=== PATIENT | male | born 1950 | race Caucasian/White ===

== ENCOUNTER 2023-11-24 16:32 | Inpatient (IN) | payer OTHER, BC ==
[2023-11-24 18:01] LABS: BASO % 0.4 % (0-2.0); EOS % 0.1 % (0-4.5); HEMOGLOBIN 13.2 GM/dL (11.7-16.9); LYMPH % 8.6 % (8-40); MCHC 33.7 g/dl (32.0-35.9); MEAN PLT VOLUME 9.8 fl (7.5-11.1); MONO % 6.6 % (3.8-10.2); NEUT % 84.3 % (42.8-82.8); PLATELET COUNT 138 10^3/uL (134-434); RBC 4.38 M/mm3 (4.00-5.60); RDW 13.3 % (11.9-15.9); WHITE BLOOD COUNT 6.7 K/mm3 (4.0-10.0)
[2023-11-24 18:03] LABS: EPI CELLS 20 /uL (0-25.1); HYALINE CASTS 0 /uL (0-3.1); URINE APPEARANCE CLEAR; URINE BACTERIA 10 /uL (0-1359); URINE BILIRUBIN 2+ (NEGATIVE); URINE COLOR DK YELLOW; URINE GLUCOSE (UA) NEGATIVE (NEGATIVE); URINE KETONE 1+ (NEGATIVE); URINE LEUK ESTERASE TRACE (NEGATIVE); URINE NITRITE NEGATIVE (NEGATIVE); URINE PROTEIN 1+ (NEGATIVE); URINE RBC 24 /uL (0-23.9); URINE WBC 14 /uL (0-25.8)
[2023-11-24 18:10] LABS: INR 1.09 (0.83-1.09); PROTHROMBIN TIME (PATIENT) 12.3 SEC (9.7-13.0)
[2023-11-24] MEDS ORDERED: ACETAMINOPHEN INJECTION 100 ML IVPB ONE (18:25)
[2023-11-24 18:28] LABS: POTASSIUM 3.7 mmol/L (3.5-5.1)
[2023-11-24 18:30] LABS: CALCIUM 9.1 mg/dL (8.5-10.1)
[2023-11-24 18:31] LABS: ALBUMIN 3.7 g/dl (3.4-5.0); BLOOD UREA NITROGEN 38.5 mg/dL (7-18)
[2023-11-24 18:36] LABS: TOT PROT 6.5 g/dl (6.4-8.2)
[2023-11-24] MEDS: LACTATED RINGERS SOLUTION 1000 ML INFUS.BAG IV ONE (18:40)
[2023-11-24] MEDS: ACETAMINOPHEN 1000 MG/100 ML BAG IVPB ONE (18:40)
[2023-11-24] MEDS ORDERED: ACETAMINOPHEN 1000 MG/100 ML BAG IVPB PRN (20:18)
[2023-11-24] MEDS: HEPARIN NA (PORCINE) 5,000 UNITS/ML 1ML VIAL SQ SCH (23:00)
[2023-11-24] MEDS: PANTOPRAZOLE SODIUM 40 MG VIAL IVPUSH SCH (23:00)
[2023-11-24] MEDS: LACTATED RINGERS SOLUTION 1,000 ML/1,000 ML INFUS.BAG IV SCH (23:01)
[2023-11-25 00:49] VITALS: BMI 23.9
[2023-11-25] MEDS: LACTATED RINGERS SOLUTION 1,000 ML/1,000 ML INFUS.BAG IV SCH (05:25)
[2023-11-25 07:06] VITALS: RESP 18
[2023-11-25 08:59] LABS: HEMATOCRIT 38.6 % (35.4-49); MCH 30.1 pg (25.7-33.7); MCHC 33.6 g/dl (32.0-35.9); MEAN CELL VOLUME 89.5 fl (80-96); MEAN PLT VOLUME 11.1 fl (7.5-11.1); PLATELET COUNT 116 10^3/uL (134-434); RBC 4.31 M/mm3 (4.00-5.60); RDW 13.2 % (11.9-15.9); WHITE BLOOD COUNT 4.8 K/mm3 (4.0-10.0)
[2023-11-25 09:19] LABS: POTASSIUM 3.6 mmol/L (3.5-5.1)
[2023-11-25 09:21] LABS: BLOOD UREA NITROGEN 32.8 mg/dL (7-18); CALCIUM 8.3 mg/dL (8.5-10.1)
[2023-11-25 09:22] LABS: MAGNESIUM 2.1 mg/dL (1.8-2.4)
[2023-11-25 09:25] LABS: CREATININE 0.7 mg/dL (0.55-1.3)
[2023-11-25 09:34] LABS: ANISOCYTOSIS 0; MACROCYTOSIS 0
[2023-11-26 08:24] LABS: BASO % 0.8 % (0-2.0); EOS % 1.6 % (0-4.5); HEMATOCRIT 36.1 % (35.4-49); HEMOGLOBIN 12.1 GM/dL (11.7-16.9); LYMPH % 27.5 % (8-40); MCH 29.9 pg (25.7-33.7); MCHC 33.5 g/dl (32.0-35.9); MEAN CELL VOLUME 89.3 fl (80-96); MEAN PLT VOLUME 11.4 fl (7.5-11.1); MONO % 12.9 % (3.8-10.2); NEUT % 57.2 % (42.8-82.8); PLATELET COUNT 91 10^3/uL (134-434); RBC 4.04 M/mm3 (4.00-5.60); WHITE BLOOD COUNT 5.3 K/mm3 (4.0-10.0)
[2023-11-26 08:40] LABS: POTASSIUM 3.7 mmol/L (3.5-5.1)
[2023-11-26 08:46] LABS: CALCIUM 8.3 mg/dL (8.5-10.1)
[2023-11-26 08:47] LABS: BLOOD UREA NITROGEN 24.8 mg/dL (7-18)
[2023-11-26 08:50] LABS: CREATININE 0.6 mg/dL (0.55-1.3)
[2023-11-26 09:50] LABS: ANISOCYTOSIS 0; MACROCYTOSIS 0
[2023-11-27 08:35] LABS: POTASSIUM 3.5 mmol/L (3.5-5.1)
[2023-11-27 08:39] LABS: BLOOD UREA NITROGEN 12.2 mg/dL (7-18); CALCIUM 8.7 mg/dL (8.5-10.1)
[2023-11-27 08:42] LABS: CREATININE 0.7 mg/dL (0.55-1.3)
[2023-11-27 08:47] LABS: BASO % 0.5 % (0-2.0); EOS % 1.5 % (0-4.5); LYMPH % 22.4 % (8-40); MCH 30.1 pg (25.7-33.7); MCHC 34.2 g/dl (32.0-35.9); MEAN CELL VOLUME 87.9 fl (80-96); MEAN PLT VOLUME 11.5 fl (7.5-11.1); MONO % 14.8 % (3.8-10.2); NEUT % 60.8 % (42.8-82.8); PLATELET COUNT 127 10^3/uL (134-434); RBC 4.32 M/mm3 (4.00-5.60); RDW 12.9 % (11.9-15.9); WHITE BLOOD COUNT 6.1 K/mm3 (4.0-10.0)
[2023-11-27] MEDS: LACTATED RINGERS SOLUTION 1,000 ML/1,000 ML INFUS.BAG IV SCH (11:05)
[2023-11-28 07:47] LABS: HEMATOCRIT 41.5 % (35.4-49); MCH 29.6 pg (25.7-33.7); MCHC 33.8 g/dl (32.0-35.9); MEAN CELL VOLUME 87.8 fl (80-96); MEAN PLT VOLUME 10.8 fl (7.5-11.1); PLATELET COUNT 127 10^3/uL (134-434); RBC 4.72 M/mm3 (4.00-5.60); RDW 13.2 % (11.9-15.9)
[2023-11-28 07:55] LABS: POTASSIUM 4.5 mmol/L (3.5-5.1)
[2023-11-28 08:01] LABS: BLOOD UREA NITROGEN 10.3 mg/dL (7-18)
[2023-11-28 08:04] LABS: CREATININE 0.6 mg/dL (0.55-1.3)
[2023-11-28 10:14] LABS: ANISOCYTOSIS 0; HELMET CELLS 0; HOWELL-JOLLY BODIES 0; MACROCYTOSIS 0; OVALOCYTE 0; ROULEAU 0; SICKELED CELLS 0; TARGET CELLS 0; TEAR DROP CELLS 0; TOXIC GRANULATION 0
[2023-11-28 23:18] VITALS: TEMP 98.4
[2023-11-29 08:48] LABS: BASO % 0.3 % (0-2.0); EOS % 3.7 % (0-4.5); HEMATOCRIT 40.5 % (35.4-49); HEMOGLOBIN 13.8 GM/dL (11.7-16.9); LYMPH % 25.7 % (8-40); MCH 29.9 pg (25.7-33.7); MEAN CELL VOLUME 87.9 fl (80-96); MEAN PLT VOLUME 10.7 fl (7.5-11.1); NEUT % 57.3 % (42.8-82.8); PLATELET COUNT 117 10^3/uL (134-434); RBC 4.61 M/mm3 (4.00-5.60); RDW 12.9 % (11.9-15.9); WHITE BLOOD COUNT 6.9 K/mm3 (4.0-10.0)
[2023-11-29 08:52] LABS: POTASSIUM 3.5 mmol/L (3.5-5.1)
[2023-11-29 08:55] LABS: BLOOD UREA NITROGEN 14.7 mg/dL (7-18)
[2023-11-29 08:58] LABS: CREATININE 0.8 mg/dL (0.55-1.3)
[2023-11-29 16:09] VITALS: BP 143/98; PULSE 70
== END 2023-11-29 17:43 | disposition home or self-care (01) | DRG 57 ==
LOC: JER 16:32 → JERBED 19:38 → OBSVTOIN 20:16 → J7W 21:11
PROVIDERS: ADMIT Internal Medicine; ATTEND Internal Medicine
DX: G30.1 Alzheimer's disease with late onset (principal); E86.0 Dehydration; R62.7 Adult failure to thrive; M25.551 Pain in right hip; F02.80 Dementia in other diseases classified elsewhere, unspecified severity, without behavioral disturbance, psychotic disturbance, mood disturbance, and anxiety; H40.9 Unspecified glaucoma; E83.39 Other disorders of phosphorus metabolism; D69.6 Thrombocytopenia, unspecified; R13.12 Dysphagia, oropharyngeal phase; A08.4 Viral intestinal infection, unspecified; D72.9 Disorder of white blood cells, unspecified
CPT/HCPCS: 0241U-QW; 36415; 71045-TC-FY; 72170-TC-FY; 73502-TC-RT-FY; 74230-TC-FY; 80048; 80053; 81003; 83605; 83735; 84100; 84484; 85025; 85610; 86850; 86900; 86901; 87040; 87045; 87046; 87086; 87209; 87324; 87425; 87449; 87798; 92611-GN; 93005; 93010; 97116-GP; 97161-GP; 99285-25; G0378; J0131; J1644

== ENCOUNTER 2023-12-02 12:33 | Emergency (ER) | payer OTHER, BC ==
[2023-12-02 14:34] VITALS: BP 127/82; PULSE 76; RESP 17; TEMP 97.7; BMI 23.0
[2023-12-02 15:13] LABS: BASO % 1.1 % (0-2.0); EOS % 2.2 % (0-4.5); HEMATOCRIT 40.5 % (35.4-49); HEMOGLOBIN 13.5 GM/dL (11.7-16.9); MCH 29.7 pg (25.7-33.7); MCHC 33.4 g/dl (32.0-35.9); MEAN PLT VOLUME 10.1 fl (7.5-11.1); NEUT % 66.7 % (42.8-82.8); PLATELET COUNT 155 10^3/uL (134-434); RBC 4.55 M/mm3 (4.00-5.60); RDW 13.4 % (11.9-15.9); WHITE BLOOD COUNT 8.2 K/mm3 (4.0-10.0)
[2023-12-02 15:22] LABS: PH,URINE 5.5 (5.0-8.0); URINE APPEARANCE CLEAR; URINE BILIRUBIN NEGATIVE (NEGATIVE); URINE COLOR YELLOW; URINE GLUCOSE (UA) NEGATIVE (NEGATIVE); URINE KETONE TRACE (NEGATIVE); URINE LEUK ESTERASE NEGATIVE (NEGATIVE); URINE NITRITE NEGATIVE (NEGATIVE); URINE PROTEIN NEGATIVE (NEGATIVE)
[2023-12-02 15:43] LABS: POTASSIUM 4.2 mmol/L (3.5-5.1)
[2023-12-02 15:44] LABS: CALCIUM 9.4 mg/dL (8.5-10.1)
[2023-12-02 15:46] LABS: ALBUMIN 3.7 g/dl (3.4-5.0); BLOOD UREA NITROGEN 31.6 mg/dL (7-18)
[2023-12-02 15:49] LABS: BILIRUBIN,TOTAL 0.8 mg/dL (0.2-1); TOT PROT 6.9 g/dl (6.4-8.2)
[2023-12-02 16:03] LABS: CREATININE 0.8 mg/dL (0.55-1.3)
[2023-12-02] MEDS: SODIUM CHLORIDE 0.9% 500 ML INFUS.BAG IV ONE (17:26)
== END 2023-12-02 17:56 ==
LOC: JER 12:33
DX: Z04.3 Encounter for examination and observation following other accident (principal); W19.XXXA Unspecified fall, initial encounter
CPT/HCPCS: 36415; 70450-TC; 71045-TC-FY; 72125-TC; 72170-TC-FY; 80053; 81003; 82550; 84484; 85025; 87086; 93005; 93010; 99285-25

== ENCOUNTER 2024-01-14 08:05 | Emergency (ER) | payer OTHER, BC ==
[2024-01-14 08:39] VITALS: BP 156/81; PULSE 61; TEMP 97.9; BMI 26.5
[2024-01-14] MEDS ORDERED: ACETAMINOPHEN 325 MG TABLET (FP) ONE (09:53)
[2024-01-14] MEDS: ACETAMINOPHEN 325 MG TABLET (FP) PO ONE (10:04)
[2024-01-14 10:20] LABS: URINE APPEARANCE CLEAR; URINE BILIRUBIN NEGATIVE (NEGATIVE); URINE COLOR YELLOW; URINE GLUCOSE (UA) NEGATIVE (NEGATIVE); URINE KETONE NEGATIVE (NEGATIVE); URINE LEUK ESTERASE NEGATIVE (NEGATIVE); URINE NITRITE NEGATIVE (NEGATIVE); URINE PROTEIN NEGATIVE (NEGATIVE)
[2024-01-14 15:58] VITALS: RESP 18
== END 2024-01-14 17:23 ==
LOC: JER 08:05
DX: R10.84 Generalized abdominal pain (principal); W01.198A Fall on same level from slipping, tripping and stumbling with subsequent striking against other object, initial encounter; Y92.129 Unspecified place in nursing home as the place of occurrence of the external cause
CPT/HCPCS: 70450-TC; 71045-TC-FY; 72125-TC; 72170-TC-FY; 74176-TC; 81003; 82962; 87086; 99285-25

== ENCOUNTER 2024-01-25 17:54 | Emergency (ER) | payer OTHER, BC ==
[2024-01-25 18:43] VITALS: BP 140/73; PULSE 75; RESP 16; BMI 25.8
[2024-01-25 22:56] LABS: BASO % 1.1 % (0-2.0); EOS % 1.6 % (0-4.5); HEMATOCRIT 40.2 % (35.4-49); HEMOGLOBIN 13.8 GM/dL (11.7-16.9); LYMPH % 22.7 % (8-40); MCH 30.2 pg (25.7-33.7); MCHC 34.3 g/dl (32.0-35.9); MEAN PLT VOLUME 9.1 fl (7.5-11.1); MONO % 10.3 % (3.8-10.2); NEUT % 64.3 % (42.8-82.8); PLATELET COUNT 205 10^3/uL (134-434); RBC 4.57 M/mm3 (4.00-5.60); RDW 14.2 % (11.9-15.9); WHITE BLOOD COUNT 8.3 K/mm3 (4.0-10.0)
[2024-01-25 23:31] LABS: CREATININE 0.7 mg/dL (0.55-1.3)
[2024-01-25 23:32] LABS: BILIRUBIN,TOTAL 0.7 mg/dL (0.2-1); TOT PROT 7.4 g/dl (6.4-8.2)
[2024-01-25 23:52] LABS: BLOOD UREA NITROGEN 28.4 mg/dL (7-18); CALCIUM 9.4 mg/dL (8.5-10.1)
[2024-01-26 02:49] LABS: URINE APPEARANCE CLEAR; URINE BILIRUBIN NEGATIVE (NEGATIVE); URINE COLOR YELLOW; URINE GLUCOSE (UA) NEGATIVE (NEGATIVE); URINE KETONE NEGATIVE (NEGATIVE); URINE LEUK ESTERASE NEGATIVE (NEGATIVE); URINE NITRITE NEGATIVE (NEGATIVE); URINE PROTEIN NEGATIVE (NEGATIVE)
[2024-01-26 03:48] VITALS: TEMP 97.9
== END 2024-01-26 02:34 ==
LOC: JER 17:54
DX: M54.9 Dorsalgia, unspecified (principal); W19.XXXA Unspecified fall, initial encounter; Y92.129 Unspecified place in nursing home as the place of occurrence of the external cause
CPT/HCPCS: 36415; 70450-TC; 71045-TC-FY; 72125-TC; 72170-TC-FY; 80053; 81003; 84484; 85025; 87086; 99284-25

== ENCOUNTER 2024-02-22 13:39 | Emergency (ER) | payer OTHER, BC ==
[2024-02-22 14:05] VITALS: BP 155/85; PULSE 76; RESP 18; TEMP 98.5; BMI 23.0
== END 2024-02-22 18:01 ==
LOC: JER 13:39
DX: S49.92XA Unspecified injury of left shoulder and upper arm, initial encounter (principal); X58.XXXA Exposure to other specified factors, initial encounter
CPT/HCPCS: 71045-TC-FY; 73000-TC-LT-FY; 73030-TC-LT-FY; 99284-25

== ENCOUNTER 2024-02-24 19:40 | Emergency (ER) | payer OTHER, BC ==
[2024-02-24 19:55] VITALS: TEMP 98.4; BMI 20.3
[2024-02-25 03:17] VITALS: BP 138/90; PULSE 75; RESP 19
== END 2024-02-25 04:11 ==
LOC: JER 19:40
DX: S09.90XA Unspecified injury of head, initial encounter (principal); W01.0XXA Fall on same level from slipping, tripping and stumbling without subsequent striking against object, initial encounter
CPT/HCPCS: 70450-TC; 71045-TC-FY; 72125-TC; 73521-TC-FY; 99284-25

== ENCOUNTER 2024-02-27 16:55 | Emergency (ER) | payer OTHER, BC ==
[2024-02-27 17:27] VITALS: TEMP 98.4; BMI 22.1
[2024-02-27 19:46] LABS: BASO % 1.5 % (0-2.0); EOS % 2.1 % (0-4.5); HEMATOCRIT 38.5 % (35.4-49); HEMOGLOBIN 12.8 GM/dL (11.7-16.9); LYMPH % 28.1 % (8-40); MCH 29.9 pg (25.7-33.7); MCHC 33.2 g/dl (32.0-35.9); MEAN PLT VOLUME 9.4 fl (7.5-11.1); MONO % 10.6 % (3.8-10.2); NEUT % 57.7 % (42.8-82.8); PLATELET COUNT 157 10^3/uL (134-434); RBC 4.27 M/mm3 (4.00-5.60); RDW 14.2 % (11.9-15.9); WHITE BLOOD COUNT 6.4 K/mm3 (4.0-10.0)
[2024-02-27 20:10] LABS: POTASSIUM 4.1 mmol/L (3.5-5.1)
[2024-02-27 20:12] LABS: CALCIUM 9.3 mg/dL (8.5-10.1)
[2024-02-27 20:13] LABS: ALBUMIN 3.8 g/dl (3.4-5.0); BLOOD UREA NITROGEN 33.8 mg/dL (7-18)
[2024-02-27 20:16] LABS: CREATININE 0.8 mg/dL (0.55-1.3)
[2024-02-27 20:18] LABS: BILIRUBIN,TOTAL 0.6 mg/dL (0.2-1); TOT PROT 6.8 g/dl (6.4-8.2)
[2024-02-27 21:02] LABS: HIV INTERPRETATION NEGATIVE (NEGATIVE)
[2024-02-27 23:34] VITALS: BP 121/60; PULSE 76; RESP 17
== END 2024-02-28 02:34 | disposition home or self-care (01) ==
LOC: JER 16:55
DX: Z04.3 Encounter for examination and observation following other accident (principal); F03.90 Unspecified dementia, unspecified severity, without behavioral disturbance, psychotic disturbance, mood disturbance, and anxiety; W19.XXXA Unspecified fall, initial encounter
CPT/HCPCS: 36415; 70450-TC; 72125-TC; 72170-TC-FY; 73030-TC-LT-FY; 80053; 84484; 85025; 86803; 87389; 93005; 93010; 99285-25

== ENCOUNTER 2024-07-12 12:02 | Inpatient (IN) | payer OTHER, BC ==
[2024-07-12] MEDS ORDERED: ACETAMINOPHEN INJECTION 100 ML ONE (14:26)
[2024-07-12] MEDS: SODIUM CHLORIDE 0.9% 500 ML INFUS.BAG IV ONE (14:30)
[2024-07-12] MEDS: ACETAMINOPHEN 1000 MG/100 ML BAG IVPB ONE (14:30)
[2024-07-12 14:41] LABS: HEMATOCRIT 40.4 % (35.4-49); HEMOGLOBIN 13.7 GM/dL (11.7-16.9); MCH 30.9 pg (25.7-33.7); MCHC 33.8 g/dl (32.0-35.9); MEAN CELL VOLUME 91.2 fl (80-96); MEAN PLT VOLUME 10.5 fl (7.5-11.1); PLATELET COUNT 118 10^3/uL (134-434); RBC 4.43 M/mm3 (4.00-5.60); RDW 13.7 % (11.9-15.9); WHITE BLOOD COUNT 4.8 K/mm3 (4.0-10.0)
[2024-07-12 14:44] LABS: VENOUS BASE EXCESS 1.5 mmol/L (-2-2); VENOUS O2 SATURATION 45.5 % (70-80); VENOUS PCO2 50.2 mmHg (38-52); VENOUS PH 7.361 (7.310-7.410)
[2024-07-12 14:48] LABS: EPI CELLS 33 /uL (0-25.1); HYALINE CASTS 0 /uL (0-3.1); PH,URINE 5.5 (5.0-8.0); URINE APPEARANCE CLEAR; URINE BACTERIA 17 /uL (0-1359); URINE BILIRUBIN NEGATIVE (NEGATIVE); URINE COLOR YELLOW; URINE GLUCOSE (UA) NEGATIVE (NEGATIVE); URINE KETONE NEGATIVE (NEGATIVE); URINE LEUK ESTERASE NEGATIVE (NEGATIVE); URINE NITRITE NEGATIVE (NEGATIVE); URINE PROTEIN 1+ (NEGATIVE); URINE RBC 1527 /uL (0-23.9); URINE WBC 22 /uL (0-25.8)
[2024-07-12 15:03] LABS: POTASSIUM 4.2 mmol/L (3.5-5.1)
[2024-07-12 15:05] LABS: ALBUMIN 3.4 g/dl (3.4-5.0); CALCIUM 8.6 mg/dL (8.5-10.1)
[2024-07-12 15:06] LABS: BLOOD UREA NITROGEN 32.1 mg/dL (7-18)
[2024-07-12 15:10] LABS: BILIRUBIN,TOTAL 0.5 mg/dL (0.2-1); TOT PROT 6.5 g/dl (6.4-8.2)
[2024-07-12 15:24] LABS: ANISOCYTOSIS 0; HELMET CELLS 0; HOWELL-JOLLY BODIES 0; MACROCYTOSIS 0; OVALOCYTE 0; ROULEAU 0; SICKELED CELLS 0; TARGET CELLS 0; TEAR DROP CELLS 0; TOXIC GRANULATION 0
[2024-07-12] MEDS: SODIUM CHLORIDE 1,000 ML IV STA (16:31)
[2024-07-12] MEDS ORDERED: ACETAMINOPHEN 325 MG TABLET (FP) PO PRN (16:55)
[2024-07-12] MEDS ORDERED: PANTOPRAZOLE 40 MG TABLET PO ONE (18:09)
[2024-07-12] MEDS ORDERED: OSELTAMIVIR PHOSPHATE 75 MG CAPSULE ONE (18:09)
[2024-07-12] MEDS ORDERED: ENOXAPARIN NA (PORCINE) 40 MG/0.4 ML DISP.SYRIN SQ ONE (18:10)
[2024-07-12] MEDS: D5-1/2NS+10 MEQ KCL - 10 MEQ/1,000 ML INFUS.BAG IV SCH ×3 (18:14→20:46)
[2024-07-12] MEDS: OSELTAMIVIR PHOSPHATE 75 MG CAPSULE PO ONE (18:43)
[2024-07-12] MEDS: ENOXAPARIN NA (PORCINE) 40 MG/0.4 ML DISP.SYRIN SQ SCH (18:44)
[2024-07-12] MEDS: PANTOPRAZOLE 40 MG TABLET PO SCH (18:44)
[2024-07-12] MEDS ORDERED: LORazepam 2 MG/ML SDV VIAL IVPUSH PRN (20:06)
[2024-07-12] MEDS ORDERED: LORazepam 2 MG/ML SDV VIAL ONE (20:19)
[2024-07-12] MEDS: LORazepam 2 MG/ML SDV VIAL IVPUSH ONE (20:43)
[2024-07-12] MEDS: QUEtiapine FUMARATE 25 MG TABLET PO SCH (23:14)
[2024-07-12] MEDS: DOCUSATE SODIUM 100 MG CAPSULE (FP) PO SCH (23:15)
[2024-07-13 00:48] VITALS: BMI 19.8
[2024-07-13 09:00] LABS: HEMOGLOBIN 14.1 GM/dL (11.7-16.9); MCHC 34.4 g/dl (32.0-35.9); MEAN CELL VOLUME 90.3 fl (80-96); MEAN PLT VOLUME 10.4 fl (7.5-11.1); PLATELET COUNT 116 10^3/uL (134-434); RBC 4.54 M/mm3 (4.00-5.60); RDW 13.5 % (11.9-15.9); WHITE BLOOD COUNT 3.5 K/mm3 (4.0-10.0)
[2024-07-13 09:19] LABS: POTASSIUM 3.6 mmol/L (3.5-5.1)
[2024-07-13 09:25] LABS: CALCIUM 8.6 mg/dL (8.5-10.1)
[2024-07-13 09:26] LABS: BLOOD UREA NITROGEN 15.1 mg/dL (7-18)
[2024-07-13 09:29] LABS: CREATININE 0.7 mg/dL (0.55-1.3)
[2024-07-13 09:48] LABS: ANISOCYTOSIS 0; MACROCYTOSIS 0
[2024-07-13] MEDS: DULoxetine HCL 30 MG CAPSULE.DR PO SCH (10:06)
[2024-07-13] MEDS: CEFTRIAXONE 2 GM-D5W BAG 2 GM/50 ML BAG IVPB SCH (10:06)
[2024-07-13] MEDS: OSELTAMIVIR PHOSPHATE 30 MG CAPSULE PO SCH (10:07)
[2024-07-14 12:45] LABS: EOS % 1.4 % (0-4.5); HEMATOCRIT 42.6 % (35.4-49); HEMOGLOBIN 14.4 GM/dL (11.7-16.9); LYMPH % 30.5 % (8-40); MCH 30.4 pg (25.7-33.7); MCHC 33.8 g/dl (32.0-35.9); MEAN CELL VOLUME 89.8 fl (80-96); MONO % 13.5 % (3.8-10.2); NEUT % 53.6 % (42.8-82.8); PLATELET COUNT 136 10^3/uL (134-434); RBC 4.75 M/mm3 (4.00-5.60); RDW 13.2 % (11.9-15.9); WHITE BLOOD COUNT 4.2 K/mm3 (4.0-10.0)
[2024-07-14 13:06] LABS: POTASSIUM 4.6 mmol/L (3.5-5.1)
[2024-07-14 13:10] LABS: CALCIUM 9.1 mg/dL (8.5-10.1)
[2024-07-14 13:14] LABS: BLOOD UREA NITROGEN 16.2 mg/dL (7-18); CREATININE 0.8 mg/dL (0.55-1.3)
[2024-07-15 10:33] LABS: BASO % 0.9 % (0-2.0); EOS % 1.9 % (0-4.5); HEMATOCRIT 39.9 % (35.4-49); HEMOGLOBIN 13.9 GM/dL (11.7-16.9); LYMPH % 32.1 % (8-40); MCHC 34.7 g/dl (32.0-35.9); MEAN CELL VOLUME 89.2 fl (80-96); MEAN PLT VOLUME 9.5 fl (7.5-11.1); MONO % 10.7 % (3.8-10.2); NEUT % 54.4 % (42.8-82.8); PLATELET COUNT 125 10^3/uL (134-434); RBC 4.47 M/mm3 (4.00-5.60); RDW 13.4 % (11.9-15.9); WHITE BLOOD COUNT 4.4 K/mm3 (4.0-10.0)
[2024-07-15 11:05] LABS: POTASSIUM 3.9 mmol/L (3.5-5.1)
[2024-07-15 11:17] LABS: BLOOD UREA NITROGEN 22.9 mg/dL (7-18); CALCIUM 8.8 mg/dL (8.5-10.1)
[2024-07-15 11:20] LABS: CREATININE 0.7 mg/dL (0.55-1.3)
[2024-07-15] MEDS: D5-1/2NS+10 MEQ KCL - 10 MEQ/1,000 ML INFUS.BAG IV SCH (12:16)
[2024-07-16] MEDS: CEFUROXIME AXETIL 500 MG TABLET PO SCH (09:50)
[2024-07-17 10:47] LABS: BASO % 0.4 % (0-2.0); EOS % 2.2 % (0-4.5); HEMATOCRIT 40.3 % (35.4-49); LYMPH % 31.5 % (8-40); MCHC 34.7 g/dl (32.0-35.9); MEAN CELL VOLUME 89.3 fl (80-96); MEAN PLT VOLUME 10.4 fl (7.5-11.1); MONO % 12.8 % (3.8-10.2); NEUT % 53.1 % (42.8-82.8); PLATELET COUNT 121 10^3/uL (134-434); RBC 4.51 M/mm3 (4.00-5.60); RDW 12.9 % (11.9-15.9); WHITE BLOOD COUNT 4.7 K/mm3 (4.0-10.0)
[2024-07-17 11:23] LABS: POTASSIUM 4.1 mmol/L (3.5-5.1)
[2024-07-17 11:26] LABS: BLOOD UREA NITROGEN 21.8 mg/dL (7-18)
[2024-07-17 11:30] LABS: CREATININE 0.7 mg/dL (0.55-1.3)
[2024-07-17 22:02] VITALS: BP 115/64; PULSE 71; RESP 19; TEMP 97.2
== END 2024-07-18 04:35 | disposition home or self-care (01) | DRG 194 ==
LOC: JER 12:02 → JERBED 16:17 → OBSVTOIN 16:57 → J7W 21:35 → J6W 07-14 03:38
PROVIDERS: ADMIT Internal Medicine; ATTEND Internal Medicine
DX: J10.1 Influenza due to other identified influenza virus with other respiratory manifestations (principal); E44.0 Moderate protein-calorie malnutrition; Z68.1 Body mass index [BMI] 19.9 or less, adult; G30.9 Alzheimer's disease, unspecified; F02.80 Dementia in other diseases classified elsewhere, unspecified severity, without behavioral disturbance, psychotic disturbance, mood disturbance, and anxiety; D69.6 Thrombocytopenia, unspecified
CPT/HCPCS: 0241U-QW; 36415; 70450-TC; 71045-TC-FY; 80048; 80053; 81003; 82803; 83605; 84484; 85025; 87086; 93005; 93010; 97116-GP; 97162-GP; 99285-25; G0378; J0131

== ENCOUNTER 2024-10-26 12:35 | Emergency (ER) | payer OTHER, BC ==
[2024-10-26 13:25] VITALS: BP 146/74; PULSE 67; RESP 18; BMI 24.2
== END 2024-10-26 17:06 | disposition home or self-care (01) ==
LOC: JER 12:35
DX: R53.1 Weakness (principal)
CPT/HCPCS: 99283-25